=== PATIENT | male | born 1995 | race African-American/Black ===

== ENCOUNTER 2018-12-07 13:25 | Emergency (ER) | payer OTHER, SELFPAY ==
[~2018-12-07] VITALS: Ht 165.1 cm; Wt 78.2 kg
[~2018-12-07 13:25] MED LIST: TYLE500T78 PO
[2018-12-07] MEDS ORDERED: LIDOCAINE 2% W/EPIN INJ 20ML **PRES FREE INJ ONE (15:45)
--- NOTE | 2018-12-07 16:30 | REP ---
Clinical: Trauma/fall . Technique: AP, lateral, bilateral oblique, and coned-down views. Findings: Alignment and lordosis is maintained. The vertebral bodies including transverse process and spinous processes are intact and normal. There is no evidence for acute fracture / compression injury or subluxation. No evidence for spondylolysis or spondylolisthesis. No significant degenerative change is noted. Impression: Normal lumbosacral spine radiograph series. Electronically Signed by Markel Gil MD 12/07/2018 04:21 P
--- NOTE | 2018-12-07 16:31 | REP ---
Clinical: Trauma/fall. Technique: AP and lateral views of the sacrum and coccyx. Findings: Three total views demonstrate normal appearance of the sacrum and coccyx including the bilateral sacroiliac joints. There is no evidence for acute fracture or dislocation/subluxation. Overlying soft tissues grossly unremarkable. Impression: No acute fracture or dislocation/subluxation. Electronically Signed by Markel Gil MD 12/07/2018 04:22 P
[2018-12-07] MEDS ORDERED: BACT800T5 PO (17:23)
[2018-12-07] MEDS ORDERED: PERC5TAB12 PO (17:23)
[2018-12-07] MEDS ORDERED: BACTRIM 160MG/800MG DS TAB PO ONE (17:30)
[2018-12-07] MEDS ORDERED: PERCOCET 5MG/325MG TAB PO ONE (17:30)
[2018-12-07 17:42] VITALS: BP 126/62
[2018-12-07] MEDS ORDERED: IBUPROFEN 800 MG TAB PO ONE (18:00)
== END 2018-12-07 17:57 | disposition home or self-care (01) ==
LOC: M ED 13:25
DX: L02.31 Cutaneous abscess of buttock (principal); X50.3XXA Overexertion from repetitive movements, initial encounter; Y92.138 Other place on military base as the place of occurrence of the external cause; Y93.B2 Activity, push-ups, pull-ups, sit-ups; W00.0XXA Fall on same level due to ice and snow, initial encounter

== ENCOUNTER 2020-05-09 11:44 | Emergency (ER) | payer OTHER ==
[~2020-05-09] VITALS: Ht 165.1 cm; Wt 89.1 kg
[~2020-05-09 11:44] MED LIST changes: +BACT800T5 PO; +PERC5TAB12 PO
[2020-05-09] MEDS ORDERED: NICO4GUM44 (11:53)
[2020-05-09] MEDS ORDERED: ONDA4TAB6 SL (11:53)
[2020-05-09] MEDS ORDERED: NS 1,000 ML IV ONE (12:15)
[2020-05-09 12:48] LABS: EOS % 2.2 % (0.0-3.0); HEMATOCRIT 44.8 % (42.0-52.0); HEMOGLOBIN 16.1 g/dl (13.5-17.5); LYMPH % 26.9 % (24.0-44.0); MEAN CORPUSCULAR HEMOGLOBIN 31.4 pg (27.0-33.0); MEAN CORPUSCULAR HGB CONC 35.9 g/dl (32.0-36.5); MEAN CORPUSCULAR VOLUME 87.3 fl (80.0-96.0); MONO % 7.8 % (0.0-5.0); NEUTROPHILS % 62.2 % (36.0-66.0); PLATELET COUNT, AUTOMATED 182 10^3/uL (150-450); RED BLOOD COUNT 5.13 10^6/uL (4.30-6.10); WHITE BLOOD COUNT 8.1 10^3/uL (4.0-10.0)
[2020-05-09 12:49] LABS: BASO % 0.4 % (0.0-1.0); EOS # 0.2 10^3/uL (0.0-0.5); LYMPH # 2.2 10^3/uL (1.5-5.0); MONO # 0.6 10^3/uL (0.0-0.8)
[2020-05-09 13:30] LABS: ALT/SGPT 112 U/L (12-78); BILIRUBIN,DIRECT 0.1 MG/DL (0.0-0.2); BILIRUBIN,TOTAL 0.4 MG/DL (0.2-1.0); BLOOD UREA NITROGEN 17 MG/DL (7-18); CALCIUM LEVEL 9.1 MG/DL (8.5-10.1); CARBON DIOXIDE LEVEL 30 MEQ/L (21-32); CHLORIDE LEVEL 107 MEQ/L (98-107); CREATININE FOR GFR 0.87 MG/DL (0.70-1.30); GLOMERULAR FILTRATION RATE > 60.0 (>60); GLUCOSE, FASTING 114 MG/DL (70-100); LIPASE 85 U/L (73-393); POTASSIUM SERUM 3.9 MEQ/L (3.5-5.1); SODIUM LEVEL 141 MEQ/L (136-145); TOTAL PROTEIN 7.4 GM/DL (6.4-8.2)
[2020-05-09 14:47] VITALS: BP 114/57
== END 2020-05-09 14:47 | disposition home or self-care (01) ==
LOC: M ED 11:44
DX: R11.2 Nausea with vomiting, unspecified (principal); R19.7 Diarrhea, unspecified

== ENCOUNTER → 2020-05-10 | Outpatient (REF) | payer OTHER ==
[~2020-05-10] MED LIST changes: +NICO4GUM44; +ONDA4TAB6 SL
== END ==
LOC: M LAB REF 18:05
PROVIDERS: ATTEND Nurse Practitioner Family
DX: R19.7 Diarrhea, unspecified (principal)

== ENCOUNTER 2021-03-02 06:04 | Emergency (ER) | payer OTHER ==
[~2021-03-02] VITALS: Ht 165.1 cm; Wt 85.4 kg
[2021-03-02] MEDS ORDERED: ACET-897 PO (06:16)
[2021-03-02] MEDS ORDERED: AMOX500C PO (07:09)
[2021-03-02] MEDS ORDERED: AMOXICILLIN 500 MG CAP PO ONE (07:10)
[2021-03-02] MEDS ORDERED: ACETAMINOPHEN 325 MG TAB PO ONE (07:10)
[2021-03-02] MEDS ORDERED: IBUPROFEN 600MG TAB PO ONE (07:45)
[2021-03-02] MEDS ORDERED: NS 1,000 ML IV ONE (07:45)
[2021-03-02 09:14] VITALS: BP 111/55
== END 2021-03-02 10:07 | disposition home or self-care (01) ==
LOC: M ED 06:04
DX: J02.0 Streptococcal pharyngitis (principal); H66.93 Otitis media, unspecified, bilateral

== ENCOUNTER → 2021-07-26 | Outpatient (REF) ==
[~2021-07-26] MED LIST changes: +ACET-897 PO; +AMOX500C PO
--- NOTE | 2021-07-26 15:16 | REP ---
INDICATION: PAIN COMPARISON: None TECHNIQUE: Five views FINDINGS: The compartments are symmetric and well maintained. There is no fracture, dislocation, or subluxation. There is no destructive osseous lesion. IMPRESSION: Within normal limits <Electronically signed by Stephen Cantrell > 07/26/21 [id number]
--- NOTE | 2021-07-26 15:17 | REP ---
INDICATION: PAIN. COMPARISON: None. TECHNIQUE: Four views FINDINGS: No acute fracture or destructive osseous lesion. IMPRESSION: No acute osseous abnormality. <Electronically signed by Stephen Cantrell > 07/26/21 [id number]
--- NOTE | 2021-07-26 15:22 | REP ---
INDICATION: PAIN. COMPARISON: None. TECHNIQUE: Four views each foot FINDINGS: Bilateral: The joint spaces are symmetric and relatively well maintained. There is no evidence of acute fracture or destructive osseous lesion. 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 IMPRESSION: Bilateral: There is no acute osseous abnormality. <Electronically signed by Stephen Cantrell > 07/26/21 [id number]
== END ==
LOC: M PLAIMG 13:50
PROVIDERS: ATTEND Internal Medicine
DX: M25.561 Pain in right knee (principal); M79.672 Pain in left foot; M79.671 Pain in right foot; M25.531 Pain in right wrist